=== PATIENT | female | born 1990 | race Caucasian/White ===

== ENCOUNTER 2019-05-17 14:07 | Emergency (ER) | payer MEDICAID ==
[~2019-05-17] VITALS: Ht 162.6 cm; Wt 68.5 kg
[2019-05-17 14:39] VITALS: Ht 162.6 cm; Wt 68.5 kg
[2019-05-17 16:25] VITALS: BP 150/91
== END 2019-05-17 16:38 | disposition home or self-care (01) ==
LOC: ED 14:07
DX: R21 Rash and other nonspecific skin eruption (principal); H92.01 Otalgia, right ear; R03.0 Elevated blood-pressure reading, without diagnosis of hypertension